=== PATIENT | male | born 1980 | race Caucasian/White ===

== ENCOUNTER 2017-03-09 17:33 | Emergency (ER) | payer MEDICAID ==
[~2017-03-09] VITALS: Ht 167.6 cm; Wt 88.0 kg
[2017-03-09] MEDS ORDERED: cloNIDine HCL 0.1 MG TAB ONE (17:50)
[2017-03-09 17:51] VITALS: BP 179/125
[2017-03-09] MEDS ORDERED: cloNIDine HCL 0.1 MG TAB PO ONE (18:00)
== END 2017-03-09 20:20 | disposition left against medical advice (07) ==
LOC: ER 17:43

== ENCOUNTER 2017-06-08 04:14 | Emergency (ER) | payer MEDICAID ==
[~2017-06-08] VITALS: Ht 175.3 cm; Wt 81.6 kg
[2017-06-08 04:57] LABS: Basophils # (auto) 0.1 uL; Basophils % (auto) 0.7 % (0.0-2.0); CONDITION Y; Eosinophils # (auto) 0 uL; Eosinophils % (auto) 0.1 % (0.0-7.0); Hematocrit 50.7 % (41.0-53.0); Hemoglobin 17.5 g/dL (13.5-17.5); Lymphocytes # (auto) 1.1 uL; Lymphocytes % (auto) 9.5 % (10.0-50.0); Mean Corpuscular Hemoglobin 33.8 pg (28.0-32.0); Mean Corpuscular Hgb Conc. 34.5 g/dL (32.0-36.0); Mean Platelet Volume 8.9 fL (7.4-10.4); Monocytes # (auto) 0.8 uL; Monocytes % (auto) 7.5 % (0.0-12.0); Neutrophils # (auto) 9.2 uL; Neutrophils % (auto) 82.2 % (37.0-80.0); Platelet Count (auto) 233 10^3/uL (140-450); Red Cell Distribution Width 17.5 % (11.6-16.0); White Blood Cell 11.1 10^3/uL (4.4-10.8)
[2017-06-08 05:09] LABS: Albumin 4.1 g/dL (3.4-5.0); Anion Gap 17 (5-15); Aspartate Aminotransferase 62 U/L (15-37); BUN/Creatinine Ratio 13.6; Blood Urea Nitrogen 12 mg/dL (7-18); Calcium 8.6 mg/dL (8.5-10.1); Carbon Dioxide 22 mmol/L (21-32); Chloride 102 mmol/L (98-107); GFR African American 126 mL/min; GFR Non-African American 104 mL/min; Glucose 93 mg/dL (74-106); Magnesium 1.6 mg/dL (1.6-2.6); Potassium 3.5 mmol/L (3.5-5.1); Sodium 141 mmol/L (136-145)
[2017-06-08 05:20] LABS: Alkaline Phosphatase 91 U/L (45-117); Bilirubin, Total 1.3 mg/dL (0.2-1.0)
[2017-06-08 05:45] LABS: Urine Blood TRACE /uL (Negative); Urine Color Yellow (Yellow); Urine Glucose Normal (Normal); Urine Nitrite Negative (Negative); Urine RBC 1 /hpf (0 - 3); Urine Squamous Epithelial Cell FEW /hpf (<5); Urine pH 5.5 (5.0-8.0)
[2017-06-08 05:50] LABS: Urine Bilirubin POSITIVE (Negative); Urine Ketone 4+ (Negative)
[2017-06-08] MEDS ORDERED: SODIUM CHLORIDE 0.9% 1,000 ML IV ONE ×2 (08:53)
[2017-06-08] MEDS ORDERED: cefTRIAXone 1GM/50ML D5W 50 ML IV ONE (09:00)
[2017-06-08 09:23] VITALS: BP 169/112
[2017-06-08] MEDS ORDERED: LABETALOL HCL 5 MG/ML 4ML SYRINGE IV ONE (09:45)
[2017-06-08] MEDS ORDERED: LORazepam 2MG/ML-1ML VIAL IV ONE (09:45)
[2017-06-08] MEDS ORDERED: LABETALOL HCL 5 MG/ML ML 20ML VIAL IV ONE (10:00)
== END 2017-06-08 11:50 | disposition home or self-care (01) ==
LOC: ER 04:14
DX: J40 Bronchitis, not specified as acute or chronic (principal); F12.10 Cannabis abuse, uncomplicated; F15.10 Other stimulant abuse, uncomplicated
CPT/HCPCS: 36415; 71020; 80053; 80307; 81001; 83735; 84484; 85025; 93005; 96361; 96365; 96375; 99285; J0696; J2060; J7030

== ENCOUNTER 2018-11-06 00:39 | Emergency (ER) | payer MEDICAID ==
[~2018-11-06] VITALS: Ht 175.3 cm; Wt 95.3 kg
[2018-11-06 01:12] VITALS: BP 167/113
[2018-11-06 02:15] LABS: Basophils # (auto) 0.3 uL; Basophils % (auto) 3.5 % (0.0-2.0); Eosinophils # (auto) 0.1 uL; Eosinophils % (auto) 1.5 % (0.0-7.0); Hematocrit 50.5 % (41.0-53.0); Hemoglobin 17.5 g/dL (13.5-17.5); Lymphocytes # (auto) 3.9 uL; Lymphocytes % (auto) 40.3 % (10.0-50.0); Mean Corpuscular Hemoglobin 31.5 pg (28.0-32.0); Mean Corpuscular Hgb Conc. 34.7 g/dL (32.0-36.0); Mean Corpuscular Volume 90.8 fL (80.0-100.0); Monocytes # (auto) 0.8 uL; Monocytes % (auto) 7.7 % (0.0-12.0); Neutrophils # (auto) 4.6 uL; Nucleated Red Blood Cells % 0.1 %; Platelet Count (auto) 294 10^3/uL (140-450); Red Blood Cells 5.56 10^6/uL (4.5-5.90); Red Cell Distribution Width 13.1 % (11.8-14.3); White Blood Cell 9.7 10^3/uL (4.4-10.8)
[2018-11-06 02:34] LABS: Albumin 4.3 g/dL (3.4-5.0); Anion Gap 14 (5-15); Blood Urea Nitrogen 5 mg/dL (7-18); Calcium 8.3 mg/dL (8.5-10.1); Carbon Dioxide 23 mmol/L (21-32); Chloride 100 mmol/L (98-107); Glucose 101 mg/dL (74-106); Potassium 4.2 mmol/L (3.5-5.1); Sodium 137 mmol/L (136-145)
[2018-11-06 02:36] LABS: BUN/Creatinine Ratio 6.1; GFR African American 135 mL/min; GFR Non-African American 112 mL/min
[2018-11-06 02:41] LABS: Alanine Aminotransferase 44 U/L (16-61); Alkaline Phosphatase 90 U/L (45-117); Aspartate Aminotransferase 43 U/L (15-37); Bilirubin, Total 0.6 mg/dL (0.2-1.0); Total Protein 8.1 g/dL (6.4-8.2)
== END 2018-11-06 03:42 | disposition left against medical advice (07) ==
LOC: ER 00:44
DX: R07.89 Other chest pain (principal); R06.02 Shortness of breath; Z53.21 Procedure and treatment not carried out due to patient leaving prior to being seen by health care provider
CPT/HCPCS: 36415; 80053; 84484; 85025; 93005

== ENCOUNTER 2019-01-05 08:59 | Inpatient (IN) | payer MEDICAID ==
[~2019-01-05] VITALS: Ht 175.3 cm; Wt 100.5 kg
[2019-01-05] MEDS ORDERED: SODIUM CHLORIDE 0.9% 1,000 ML IV ONE ×2 (09:17)
[2019-01-05] MEDS ORDERED: ONDANSETRON HCL 4 MG/2 ML VIAL IV ONE ×2 (09:30→14:00)
[2019-01-05 10:24] LABS: Basophils # (auto) 0.1 uL; Eosinophils # (auto) 0.1 uL; Eosinophils % (auto) 1.2 % (0.0-7.0); Hematocrit 41.9 % (41.0-53.0); Hemoglobin 14.5 g/dL (13.5-17.5); Lymphocytes # (auto) 2.5 uL; Lymphocytes % (auto) 25.3 % (10.0-50.0); Mean Corpuscular Hemoglobin 31.9 pg (28.0-32.0); Mean Corpuscular Hgb Conc. 34.6 g/dL (32.0-36.0); Mean Corpuscular Volume 92.1 fL (80.0-100.0); Monocytes % (auto) 10.1 % (0.0-12.0); Neutrophils # (auto) 6.1 uL; Neutrophils % (auto) 62.4 % (37.0-80.0); Nucleated Red Blood Cells % 0.1 %; Platelet Count (auto) 299 10^3/uL (140-450); Red Blood Cells 4.55 10^6/uL (4.5-5.90); Red Cell Distribution Width 13.8 % (11.8-14.3); White Blood Cell 9.8 10^3/uL (4.4-10.8)
[2019-01-05] MEDS ORDERED: PANTOPRAZOLE 40 MG/10 ML VIAL IV ONE ×2 (10:38→10:45)
[2019-01-05] MEDS ORDERED: LORazepam 2MG/ML-1ML VIAL ONE (10:38)
[2019-01-05] MEDS ORDERED: LORazepam 2MG/ML-1ML VIAL IV ONE (10:45)
[2019-01-05 10:47] LABS: Albumin 3.3 g/dL (3.4-5.0); Anion Gap 11 (5-15); BUN/Creatinine Ratio 45.7; Blood Alcohol < 3.0 mg/dL (0-5); Blood Urea Nitrogen 37 mg/dL (7-18); Calcium 8.2 mg/dL (8.5-10.1); Carbon Dioxide 25 mmol/L (21-32); Chloride 102 mmol/L (98-107); GFR African American 137 mL/min; GFR Non-African American 113 mL/min; Glucose 120 mg/dL (74-106); Potassium 3.8 mmol/L (3.5-5.1); Sodium 138 mmol/L (136-145)
[2019-01-05 10:52] LABS: Alanine Aminotransferase 32 U/L (16-61); Alkaline Phosphatase 67 U/L (45-117); Aspartate Aminotransferase 23 U/L (15-37); Bilirubin, Total 0.8 mg/dL (0.2-1.0); Total Protein 6.8 g/dL (6.4-8.2)
[2019-01-05 12:59] LABS: Urine Bacteria NONE SEEN /hpf (None Seen); Urine Blood Negative /uL (Negative); Urine Specific Gravity 1.019 (1.001-1.035); Urine WBC <1 /hpf (0 - 3)
[2019-01-05 13:00] LABS: Alcohol, Urine < 3.0 mg/dL (0-5); Amphetamine Screen, Urine NEGATIVE (NEGATIVE); Barbiturate Scree,Urine NEGATIVE (NEGATIVE); Benzodiazephine Screen, Urine NEGATIVE (NEGATIVE); Cannabinoid Screen, Urine NEGATIVE (NEGATIVE); Cocaine Screen, Urine NEGATIVE (NEGATIVE); Opiate Scree,Urine NEGATIVE (NEGATIVE); Phencyclidine Screen, Urine NEGATIVE (NEGATIVE)
[2019-01-05] MEDS ORDERED: IOHEXOL 300 MG/ML 100ML BOTTLE IJ ONE (13:35)
[2019-01-05] MEDS ORDERED: ONDANSETRON HCL 4 MG/2 ML VIAL ONE (14:01)
[2019-01-05] MEDS ORDERED: NITROGLYCERIN 0.4 MG SL TAB SL PRN (14:45)
[2019-01-05] MEDS ORDERED: hydrALAZINE HCL 20 MG/ML VL IV PRN (14:45)
[2019-01-05] MEDS ORDERED: NICOTINE 21MG/24 HR TOPICAL PATCH TD ONE (14:45)
[2019-01-05] MEDS ORDERED: LORazepam 2MG/ML-1ML VIAL IV PRN (14:45)
[2019-01-05] MEDS ORDERED: MORPHINE SULFATE 4 MG/ML SYR/VIAL IV PRN (14:45)
[2019-01-05] MEDS: MULTIPLE VITAMIN 10 ML, MAGNESIUM SULF SDV 50% 8 MEQ in D5W/SOD CHL 0.45% 1,000 ML IV SCH (15:52)
[2019-01-05] MEDS: MORPHINE SULF INJ 2 MG/ML SYRINGE 1ML IV PRN ×2 (16:59→23:00)
[2019-01-05] MEDS: ONDANSETRON HCL 4 MG/2 ML VIAL IV PRN ×2 (17:00→23:00)
--- NOTE | 2019-01-05 20:43 | NUR ---
Telemetry admit from ER CECILIA PATEL admitted to Telemetry unit after SBAR received. Patient oriented to PETER FLORES RN primary RN, unit, room, bed, and unit policies regarding patient care and visiting hours. Patient now on continuous telemetry monitoring, tele box # [id number] and telemetry reading on arrival to unit is [facility]. Patient placed on bedside oxygen, weighed by bedscale and encouraged to call if they need something. All questions and concerns addressed, patient verbalized understanding. Note:
[2019-01-05] MEDS ORDERED: METO25TA5 PO (21:11)
[2019-01-05] MEDS ORDERED: AML5T PO (21:11)
--- NOTE | 2019-01-05 21:11 | NUR ---
PATIENT C/O ABDOMINAL AND BACK PAIN 8/10 AND NAUSEA MEDICATIONS, REQUESTING FOR MEDICATION. PATIENT IS NOT DUE YET. WILL PAGE HOSPITALIST.
[2019-01-05] MEDS: PANTOPRAZOLE 40 MG/10 ML VIAL IV SCH (21:31)
[2019-01-05 21:55] VITALS: BP 132/85
[2019-01-05] MEDS ORDERED: HYDROcodone-ACET 10/325MG TAB PO ONE (23:00)
[2019-01-06 04:32] VITALS: BP 118/73
[2019-01-06 05:13] LABS: Basophils # (auto) 0.1 uL; Basophils % (auto) 0.8 % (0.0-2.0); Eosinophils # (auto) 0.1 uL; Eosinophils % (auto) 1.4 % (0.0-7.0); Hematocrit 31.8 % (41.0-53.0); Hemoglobin 11.1 g/dL (13.5-17.5); Lymphocytes # (auto) 3.1 uL; Lymphocytes % (auto) 32.9 % (10.0-50.0); Mean Corpuscular Hemoglobin 32.3 pg (28.0-32.0); Mean Corpuscular Hgb Conc. 34.8 g/dL (32.0-36.0); Mean Corpuscular Volume 92.9 fL (80.0-100.0); Monocytes # (auto) 0.8 uL; Monocytes % (auto) 8.6 % (0.0-12.0); Neutrophils # (auto) 5.3 uL; Neutrophils % (auto) 56.3 % (37.0-80.0); Platelet Count (auto) 220 10^3/uL (140-450); Red Blood Cells 3.42 10^6/uL (4.5-5.90); Red Cell Distribution Width 13.7 % (11.8-14.3); White Blood Cell 9.4 10^3/uL (4.4-10.8)
[2019-01-06 05:24] LABS: INR 0.99 (0.9-1.15); Partial Thromboplastin Time 22.8 sec (23.78-33.04); Prothrombin Time 10.6 sec (9.27-12.13)
[2019-01-06 05:34] LABS: Calcium 7.5 mg/dL (8.5-10.1); Potassium 3.5 mmol/L (3.5-5.1)
[2019-01-06 08:00] VITALS: BP 116/70
[2019-01-06 09:00] VITALS: BP 116/70
[2019-01-06] MEDS: PANTOPRAZOLE 40 MG/10 ML VIAL IV SCH ×2 (09:16→20:43)
[2019-01-06] MEDS: NICOTINE 21MG/24 HR TOPICAL PATCH TD SCH (09:17)
[2019-01-06] MEDS: MORPHINE SULF INJ 2 MG/ML SYRINGE 1ML IV PRN ×3 (09:17→22:20)
[2019-01-06] MEDS: ONDANSETRON HCL 4 MG/2 ML VIAL IV PRN ×3 (09:17→22:20)
[2019-01-06] MEDS ORDERED: MULTIPLE VITAMIN 10 ML, MAGNESIUM SULF SDV 50% 8 MEQ in D5W/SOD CHL 0.45% 1,000 ML IV SCH (12:00)
[2019-01-06] MEDS: MULTIPLE VITAMIN 10 ML, MAGNESIUM SULF SDV 50% 8 MEQ in D5W/SOD CHL 0.45% 1,000 ML IV SCH (12:32)
[2019-01-06 12:58] VITALS: BP 120/73
[2019-01-06 17:00] VITALS: BP 129/81
[2019-01-06 22:31] VITALS: BP 128/73
[2019-01-07 05:01] LABS: Basophils # (auto) 0.1 uL; Eosinophils # (auto) 0.2 uL; Eosinophils % (auto) 3.3 % (0.0-7.0); Hematocrit 26.2 % (41.0-53.0); Lymphocytes # (auto) 2.3 uL; Lymphocytes % (auto) 38.5 % (10.0-50.0); Mean Corpuscular Hemoglobin 32.5 pg (28.0-32.0); Mean Corpuscular Hgb Conc. 34.5 g/dL (32.0-36.0); Mean Corpuscular Volume 94.1 fL (80.0-100.0); Monocytes # (auto) 0.5 uL; Monocytes % (auto) 8.4 % (0.0-12.0); Neutrophils % (auto) 48.8 % (37.0-80.0); Nucleated Red Blood Cells % 0.1 %; Platelet Count (auto) 175 10^3/uL (140-450); Red Blood Cells 2.78 10^6/uL (4.5-5.90); Red Cell Distribution Width 13.5 % (11.8-14.3); White Blood Cell 6.1 10^3/uL (4.4-10.8)
[2019-01-07 05:47] LABS: Albumin 2.6 g/dL (3.4-5.0); BUN/Creatinine Ratio 12.7; Calcium 7.2 mg/dL (8.5-10.1); Potassium 3.4 mmol/L (3.5-5.1)
[2019-01-07 05:49] LABS: Bilirubin, Total 0.2 mg/dL (0.2-1.0); Total Protein 5.3 g/dL (6.4-8.2)
--- NOTE | 2019-01-07 07:15 | NUR ---
OPENING NOTES RECEIVED REPORT AND CONTINUATION OF CARE,PATIENT ROUNDED AND CHECKED,PATIENT UPDATED WITH PLAN OF CARE AND NURSING ROUTINES,EXPECTED PROCEDURE.TO KEEP NPO AFTER CLEAR LIQUID DIET.C/O THROAT PAIN, CALL LIGHT WITHIN REACH,PATIENT REMINDED INSTRUCTED TO CALL FOR ASSISTANCE,PATIENT VERBALIZED UNDERSTANDING.
--- NOTE | 2019-01-07 08:00 | NUR ---
C/O SORE THROAT AND SWOLLEN TONSILS,ASSESSED TONSILS NOTED TO BE RED AND SLIGHTLY SWOLLEN
[2019-01-07] MEDS ORDERED: LIDOCAINE VISCOUS 2% 15ML UD ONE (08:14)
[2019-01-07] MEDS ORDERED: SODIUM CHLORIDE LOCK 10 ML ONE (08:14)
[2019-01-07] MEDS ORDERED: diphenhdrAMINE HCL 50 MG/1 ML VL ONE (08:15)
[2019-01-07 08:54] VITALS: BP 121/75
[2019-01-07] MEDS: ONDANSETRON HCL 4 MG/2 ML VIAL IV PRN (09:01)
[2019-01-07] MEDS: MORPHINE SULF INJ 2 MG/ML SYRINGE 1ML IV PRN (09:01)
--- NOTE | 2019-01-07 09:35 | NUR ---
MD VISIT DR. HAMMOND HERE TO SEE AND EXAMINED PATIENT INFORMED OF PATIENT C/O SORE THROAT AND TONSILS ARE RED AND SWOLLEN.
[2019-01-07] MEDS: NICOTINE 21MG/24 HR TOPICAL PATCH TD SCH (09:36)
[2019-01-07] MEDS: PANTOPRAZOLE 40 MG/10 ML VIAL IV SCH (09:37)
[2019-01-07] MEDS ORDERED: POTASSIUM CHLORIDE 20 MEQ, LIDOCAINE 1% (LOCAL ANESTH.) 2 ML in SODIUM CHL 0.9% 100 ML IV ONE (10:00)
--- NOTE | 2019-01-07 10:05 | NUR ---
TO [facility]PS HOLDING ROOM VIA BED FOR EGD,REPORT GIVEN TO GARY WOODALL
[2019-01-07] MEDS: fentaNYL CITRATE 100 MCG/2 ML VL ONE ×2 (10:47→10:50)
[2019-01-07] MEDS: MIDAZOLAM HCL 5 MG/ML-1ML VIAL ONE ×3 (10:47→10:53)
--- NOTE | 2019-01-07 11:40 | NUR ---
RECEIVED FROM PACU S/P EGD,DROWSY BUT EASILY AROUSABLE
--- NOTE | 2019-01-07 12:30 | NUR ---
TOLERATING LUNCH, NO DIFFICULTY
[2019-01-07 12:53] VITALS: BP 129/84
[2019-01-07] MEDS: MULTIPLE VITAMIN 10 ML, MAGNESIUM SULF SDV 50% 8 MEQ in D5W/SOD CHL 0.45% 1,000 ML IV SCH (15:59)
[2019-01-07 16:39] VITALS: BP 144/83
--- NOTE | 2019-01-07 16:40 | NUR ---
PATIENT REQUESTING TO BE DISCHARGE,PAGED DR. HAMMOND,AWAITING FOR CALL BACK.
--- NOTE | 2019-01-07 16:45 | NUR ---
DR. Nkechi HAMMOND CALLED INFORMED OF EGD RESULT,ESOPHAGITIS. RECEIVED ORDER TO DISCHARGED PATIENT AND TO CALL IN PROTONIX 40 MG PO ONCE A DAY TO PATIENT PHARMACY.
--- NOTE | 2019-01-07 16:55 | NUR ---
CALLED IN PROTONIX 40 MG PO 1 TABLET ONCE A DAY TO PATIENT PHARMACY AT [facility], SPOKE TO XUAN AT [phone]
[2019-01-07 17:03] VITALS: BP 144/83
--- NOTE | 2019-01-07 17:50 | NUR ---
Discharge instructions given as ordered. Encourage to follow up with PMD as instructed. All questions and concerns addressed. Patient verbalized understanding. Medication reconciliation form completed and copy given to patient. IV removed with catheter intact, pressure dressing applied, Telemetry unit returned to [facility], Patient taken to vehicle ambulatory per request with all personal belongings, accompanied by staff and family member. No distress noted at time of departure.
[2019-01-07] MEDS ORDERED: PANTOPRAZOLE 40 MG TAB PO SCH (22:00)
== END 2019-01-07 17:50 | disposition home or self-care (01) | DRG 253 ==
LOC: ER 08:59 → EDBD 08:59 → TELE 15:16 → TELE-WESTW 20:35
PROVIDERS: ADMIT Nurse Practitioner Acute Care; ATTEND Internal Medicine
PROC: 0DJ08ZZ Inspection of Upper Intestinal Tract, Via Natural or Artificial Opening Endoscopic (ICD-10-PCS; principal; 2019-01-07 10:40)
DX: K92.2 Gastrointestinal hemorrhage, unspecified (principal); E44.1 Mild protein-calorie malnutrition; I10 Essential (primary) hypertension; F15.10 Other stimulant abuse, uncomplicated; R55 Syncope and collapse; F19.10 Other psychoactive substance abuse, uncomplicated; E66.9 Obesity, unspecified; F12.90 Cannabis use, unspecified, uncomplicated; K20.9 Esophagitis, unspecified; Z68.32 Body mass index [BMI] 32.0-32.9, adult
CPT/HCPCS: 36415; 43235; 70450; 74176; 80048; 80053; 80307; 80320; 81001; 84484; 85025; 85610; 85730; 93005; A6257; C9113; G0378; J2001; J2250; J2405

== ENCOUNTER 2019-09-21 19:58 | Emergency (ER) | payer MEDICAID ==
[~2019-09-21] VITALS: Ht 172.7 cm; Wt 104.3 kg
[~2019-09-21 19:58] MED LIST: AML5T PO; METO25TA5 PO
[2019-09-21] MEDS ORDERED: MORPHINE SULFATE 10 MG/ML INJ 1ML SDV IM ONE (22:15)
[2019-09-21] MEDS ORDERED: ONDANSETRON HCL 4 MG/2 ML VIAL IV ONE (22:15)
[2019-09-21] MEDS ORDERED: MORPHINE SULFATE 4 MG/ML SYR/VIAL IV ONE (22:30)
[2019-09-22] MEDS ORDERED: MORPHINE SULFATE 4 MG/ML SYR/VIAL IV ONE ×2 (02:00→03:15)
[2019-09-22] MEDS ORDERED: TETANUS-DIPTH-ACEL PERTUSSIS 0.5ML SYRG IM ONE ×2 (03:15→04:40)
[2019-09-22] MEDS ORDERED: THIAMINE INJ 100 MG in SODIUM CHLORIDE 0.9% 1,000 ML IV ONE (03:30)
[2019-09-22] MEDS ORDERED: HYDROmorphone HCL 2 MG/ML VL IV ONE (04:00)
[2019-09-22] MEDS ORDERED: THIAMINE 100mg/ml INJ (200mg/2ml VIAL) ONE (04:38)
[2019-09-22 06:00] VITALS: BP 160/99
== END 2019-09-22 07:00 | disposition home or self-care (01) ==
LOC: ER 19:58 → EDBD 19:58 → ER 09-22 06:53
DX: S62.345A Nondisplaced fracture of base of fourth metacarpal bone, left hand, initial encounter for closed fracture (principal); S62.311A Displaced fracture of base of second metacarpal bone, left hand, initial encounter for closed fracture; S01.81XA Laceration without foreign body of other part of head, initial encounter; S20.219A Contusion of unspecified front wall of thorax, initial encounter; I10 Essential (primary) hypertension; V89.2XXA Person injured in unspecified motor-vehicle accident, traffic, initial encounter; Y93.I9 Activity, other involving external motion; Y92.410 Unspecified street and highway as the place of occurrence of the external cause; Y99.8 Other external cause status
CPT/HCPCS: 36415; 70450; 71045; 71250; 72125; 73130; 80320; 90471; 90715; 96365; 96366; 96375; 96376; 99284; J1170; J2270; J2405; J3411; J7030